=== PATIENT | female | born 1965 | race Caucasian/White ===

== ENCOUNTER → 2025-05-20 10:34 | Outpatient (REF) | payer OTHER, SELFPAY | LOC: HWRAD 10:34 | PROVIDERS: ATTENDING PHYSICIAN Surgery; FAMILY PHYSICIAN Family Medicine | DX: N13.2 Hydronephrosis with renal and ureteral calculous obstruction (principal) | CPT/HCPCS: 74018 ==

== ENCOUNTER → 2025-05-30 10:04 | Outpatient (REF) | payer OTHER, SELFPAY | LOC: HWRAD 10:04 | PROVIDERS: ATTENDING PHYSICIAN Surgery; FAMILY PHYSICIAN Family Medicine | DX: N13.2 Hydronephrosis with renal and ureteral calculous obstruction (principal) | CPT/HCPCS: 74176 ==

== ENCOUNTER 2025-06-20 06:29 | Day surgery (SDC) | payer OTHER, SELFPAY ==
[2025-06-20 14:10] VITALS: BMI 27.3
[2025-06-20 14:21] VITALS: BMI 27.3
[2025-06-20 16:50] VITALS: BP 142/76; BP 99/52
[2025-06-20 17:00] VITALS: BP 111/71
[2025-06-20 17:15] VITALS: BP 116/69
[2025-06-20 17:30] VITALS: BP 109/62
[2025-06-20 17:45] VITALS: BP 117/68
[2025-06-27 17:55] LABS: Stone Analysis Mass 49 mg
== END 2025-06-20 16:45 | disposition home or self-care (01) ==
LOC: SDS 06:29
PROVIDERS: ATTENDING PHYSICIAN Surgery
DX: N13.2 Hydronephrosis with renal and ureteral calculous obstruction (principal)
CPT/HCPCS: 52356; 74018; 76000; 82365; 93005; C1894; C2617